=== PATIENT | male | born 1930 | race Caucasian/White ===

== ENCOUNTER 2017-12-28 08:06 | Emergency (ER) | payer MEDICARE, BC ==
--- NOTE | 2017-12-28 08:20 | EDM.PDOC ---
ED HPI GENERAL MEDICAL PROBLEM - General Chief Complaint: Lower Extremity Injury/Pain Stated Complaint: fall, right hip pain Time Seen by Provider: 12/28/17 08:15 Source of Information: Reports: Patient, EMS, Snf Records, Old Records ([facility] EMR. No paper hospital chart available.). Denies: EMS Notes Reviewed (Report not available at time of dictation) History Limitations: Reports: Altered Mental Status - History of Present Illness INITIAL COMMENTS - FREE TEXT/NARRATIVE: The patient was brought to the emergency room via private automobile by paramedics with IV placed in route. 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 Note the patient was found at about 07: 30 a.m. this morning lying on his back by his bed with unwitnessed apparent fall. No known history of significant head injury, loss of consciousness, neck/ back pain, etc. Initially the patient complained of some nonspecific left hip pain, however they nurse noted possible discomfort in the right hip and possible mild rotation. Only limited history obtained from the skilled nursing staff by the emergency room nurse prior to transfer and during subsequent telephone consultation. The patient denies any chest pain/pressure, heart flutter, dizziness, orthostasis, orthopnea, diaphoresis, paresthesias, recent decreased exercise tolerance, or any other anginal-type symptoms. No recent history of abdominal pain, heartburn, nausea, diarrhea, melena, gross hematochezia, or any food intolerance, including fatty foods, etc.. The patient also denies any recent fever, cough, wheezing, dyspnea, etc.. No history of recent headaches, visual changes, diplopia, change in mental status, or other change in neurological status. The patient denies any pain or discomfort at this time. Onset: Unknown/Unsure Onset Date: 12/28/17 Duration: Resolved Prior to Arrival Location: Reports: Upper Extremity, Right, Lower Extremity, Left. Denies: Head , Face, Neck, Chest, Abdomen, Back, Pelvis, Upper Extremity, Left, Lower Extremity, Right, Generalized, Radiates to Quality: Reports: Same as Previous Episode Improves with: Reports: None Worsens with: Reports: None Context: Reports: Other (As above) Associated Symptoms: Reports: Confusion (Stable by history), Weakness (Stable generalized). Denies: Chest Pain, Cough, Diaphoresis, Fever/Chills, Headaches, Malaise, Nausea/Vomiting, Seizure, Shortness of Breath Treatments [employer]: Reports: IV/IO - Related Data Allergies Allergy/AdvReac Type Severity Reaction Status Date / Time No Known Allergies Allergy Verified 12/28/17 08:30 Home Meds: Home Meds Acetaminophen 650 mg PO Q8H PRN 08/05/16 [History] Acetaminophen [Tylenol Arthritis] 650 mg PO TID 08/05/16 [History] Memantine [Namenda] 10 mg PO 08,20 08/05/16 [History] OLANZapine [ZyPREXA] 10 mg PO BEDTIME 08/05/16 [History] Sertraline HCl 50 mg PO DAILY 08/05/16 [History] Donepezil HCl [Aricept] 10 mg PO BEDTIME 08/06/16 [History] diphenhydrAMINE HCl/Zinc Acet [Anti-Itch 1%-0.1% Cream] 1 dose TOP Q12H PRN [History] Alum Hydrox/Mag Hydrox/Simeth [Mag-Al Plus] 30 ml PO Q12H PRN 12/28/17 [History] Aspirin [Halfprin] 81 mg PO DAILY@1400 12/28/17 [History] Bisacodyl [Dulcolax] 5 mg PO Q12H PRN 12/28/17 [History] Sibley Tar [Pedro-Gel Tar] 1 applic TOP WEEKLY 12/28/17 [History] Past Medical History HEENT History: Reports: Other (See Below) Other HEENT History: Dry eye syndrome Gastrointestinal History: Reports: Chronic Constipation, GERD Genitourinary History: Reports: Chronic Renal Insuffiency, Urinary Incontinence Musculoskeletal History: Reports: Arthritis, Back Pain, Chronic, Neck Pain, Chronic, Osteoarthritis Neurological History: Reports: Alzheimers Disease, Other (See Below) Other Neuro History: History of hydrocephalus Psychiatric History: Reports: Aggressive/Hostile Behaviors, Alzheimers Disease , Anxiety, Dementia, Depression, Psychosis Dermatologic History: Reports: Seborrheic Dermatitis, Other (See Below) Other Dermatologic History: Scalp seborrheaic dermatitis, additional seborrheic keratosis - Past Surgical History HEENT Surgical History: Reports: Oral Surgery, Other (See Below) Other HEENT Surgeries/Procedures: Multiple teeth extractions including total upper dentures Social & Family History - Family History Family Medical History: Unobtainable - Tobacco Use Smoking Status *Q: Current Status Unknown - Living Situation & Occupation Living situation: Reports: , Extended Care Facility ([facility]) Review of Systems - Review of Systems Review Of Systems: ROS reveals no pertinent complaints other than HPI. ED EXAM, GENERAL - Physical Exam Exam: See Below Exam Limited By: No Limitations General Appearance: Alert, WD/WN, No Apparent Distress Eye Exam: Bilateral Eye: Normal Fundi, Normal Inspection (No nystagmus, moderate bilateral miosis), PERRL Ears: Normal External Exam, Normal Canal, Hearing Grossly Normal, Normal TMs Nose: Normal Inspection, Normal Mucosa, No Blood Throat/Mouth: Normal Lips, Normal Gums, Normal Oropharynx, Normal Voice, No Airway Compromise. No: Normal Teeth (Complete upper dentures. Multiple missing teeth lowers with multiple caries with no evidence of drainage, abscess, etc.), Dysphagia, Perioral Cyanosis Head: Atraumatic, Normocephalic. No: Facial Swelling, Facial Tenderness, Sinus Tenderness Neck: Other (0.5 cm area of seborrheic keratosis over the right anterior lateral neck region the patient has been picking with some mild localized bleeding but no evidence of infection or malignancy). No: Supple, Non-Tender, Full Range of Motion, Lymphadenopathy (L), Lymphadenopathy (R), Thyromegaly Respiratory/Chest: No Respiratory Distress, Lungs Clear, Normal Breath Sounds, No Accessory Muscle Use, Chest Non-Tender. No: Pleural Rub, Retractions Cardiovascular: Normal Peripheral Pulses, Regular Rate, Rhythm, No Gallop, No JVD, No Murmur, No Rub. No: No Edema (Dependent edema as below), Gallop/S3, Gallop/S4, Friction Rub Peripheral Pulses: 2+: Radial (L), Radial (R), Dorsalis Pedis (L), Dorsalis Pedis (R) GI/Abdominal: Normal Bowel Sounds, Soft, Non-Tender, No Organomegaly, No Distention, No Abnormal Bruit, No Mass, Pelvis Stable. No: Guarding (Male) Exam: Deferred Rectal (Males) Exam: Deferred Back Exam: Normal Inspection, Full Range of Motion. No: CVA Tenderness (L), CVA Tenderness (R), Muscle Spasm Extremities: Normal Range of Motion, Non-Tender, Pedal Edema (Trace bilateral pedal/pretibial edema. Moderate osteophytic changes. No palpation pain over the hips bilaterally with no significant rotation and adequate range of motion without discomfort). No: Demetris's Sign Neurological: Alert, CN II-XII Intact, Normal Reflexes (Negative Babinski's), No Motor/Sensory Deficits, Confused (Stable moderate organic brain syndrome by history) Psychiatric: Normal Affect, Normal Mood Skin Exam: Wound/Incision (As above). No: Diaphoretic, Ecchymosis, Pallor, Petechiae Lymphatic: No Adenopathy Course - Vital Signs Last Recorded V/S: Last Vital Signs Temp 36.6 C 12/28/17 08:15 Pulse 65 12/28/17 09:44 Resp 16 12/28/17 09:44 BP 171/80 H 12/28/17 09:44 Pulse Ox 92 L 12/28/17 09:44 Vital Signs - 24 hr 12/28/17 12/28/17 12/28/17 08:15 08:30 09:44 Temperature [ 36.6 C Temporal] Pulse, 65 67 65 Peripheral [ Left Pulse Oximetry] Respiratory 16 16 16 Rate Blood Pressure 179/73 H 178/83 H 171/80 H [Left Upper Arm ] O2 Sat by Pulse 93 L 93 L 92 L Oximetry - Orders/Labs/Meds Orders: Active Orders 24 hr Category Date Time Status Hip Min 2V or 3V w Pelvis Rt [CR] Stat Exams 12/28/17 08:21 Taken Labs: None Meds: None - Radiology Interpretation Free Text/Narrative:: X-rays of the right hip, 2 views, including additional one view of the pelvis shows no evidence of fracture, dislocation, etc. Moderate osteoarthritic changes noted Departure - Departure Time of Disposition: 10:00 Disposition: DC/Tfer to SNF 03 Condition: Good Clinical Impression: Organic brain syndrome, Mixed anxiety depressive disorder, Seborrheic keratosis , Elevated blood pressure reading Contusion Qualifiers: Encounter type: initial encounter Contusion area: lower leg Laterality: right Qualified Code(s): S80.11XA - Contusion of right lower leg, initial encounter Osteoarthritis Qualifiers: Osteoarthritis location: multiple joints Osteoarthritis type: primary Qualified Code(s): M15.0 - Primary generalized (osteo)arthritis Constipation Qualifiers: Constipation type: chronic idiopathic constipation Qualified Code(s): K59.04 - Chronic idiopathic constipation - Discharge Information Instructions: Contusion, [id number] Referrals: Sheets-Blanca Turner MD [Primary Care Provider] - Forms: ED Department Discharge Additional Instructions: 1. Follow up with your regular provider in 10-14 days as needed, if symptoms persist. 2. BenGay or equivalent, heating pad, and/or ice packs as directed. 3. Continue strict fall precautions. Notify regular provider, if recurrent falls becomes an issue. 4. Discuss with the patient's and/or regular provider possible referral to a dentist secondary to his significant caries 5. Continue to observe blood pressures closely with blood pressure and pulse evaluations on an every shift basis 24 hours. Notify regular provider if blood pressures remain elevated. He may take his morning medications. - Problem List & Annotations (1) Contusion SNOMED Code(s): 656844616 Code(s): T14.8XXA - OTHER INJURY OF UNSPECIFIED BODY REGION, INITIAL ENCOUNTER Status: Acute Priority: High Current Visit: Yes Onset Date: ~ 12/28/17 Annotation/Comment:: Probable minor fall while getting out of bed earlier this morning as above. A trauma code was immediately considered in this patient secondary to the mechanism of injury, however based on the clinical presentation of the patient, previous history, etc. this provider did not feel that a trauma code would affect the patient's level of care and was not warranted. No pain at this time with no evidence of significant injury. Probable mild left hip contusion with questionable right hip rotation history as above. Symptomatic relief as per discharge instructions. Continue strict fall precautions. Patient requires assist 2 and is not normally very ambulatory , including no current walker use, etc. Qualifiers: Encounter type: initial encounter Contusion area: lower leg Laterality: right Qualified Code(s): S80.11XA - Contusion of right lower leg, initial encounter (2) Elevated blood pressure reading SNOMED Code(s): 57964401 Code(s): R03.0 - ELEVATED BLOOD-PRESSURE READING, W/O DIAGNOSIS OF HTN Status: Acute Priority: High Current Visit: Yes Onset Date: 12/28/17 Annotation/Comment:: Nursing staff to continue to observe this closely as per discharge instructions. No previous history of hypertension or current medical therapy for this disorder. No change in his neurological status. (3) Osteoarthritis SNOMED Code(s): 265214232 Code(s): M19.90 - UNSPECIFIED OSTEOARTHRITIS, UNSPECIFIED SITE Status: Chronic Priority: Medium Current Visit: Yes Annotation/Comment:: Otherwise stable by history Qualifiers: Osteoarthritis location: multiple joints Osteoarthritis type: primary Qualified Code(s): M15.0 - Primary generalized (osteo)arthritis (4) Organic brain syndrome SNOMED Code(s): 316441431 Code(s): F09 - UNSP MENTAL DISORDER DUE TO KNOWN PHYSIOLOGICAL CONDITION Status: Chronic Priority: Medium Current Visit: Yes Annotation/Comment:: Stable by history (5) Mixed anxiety depressive disorder SNOMED Code(s): 499602531 Code(s): F41.8 - OTHER SPECIFIED ANXIETY DISORDERS Status: Chronic Priority: Medium Current Visit: Yes Annotation/Comment:: Stable by history. Note history of psychosis. Patient has not yet taken his morning medications (6) Constipation SNOMED Code(s): 57131639 Code(s): K59.00 - CONSTIPATION, UNSPECIFIED Status: Chronic Priority: Medium Current Visit: Yes Annotation/Comment:: Stable by history Qualifiers: Constipation type: chronic idiopathic constipation Qualified Code(s): K59.04 - Chronic idiopathic constipation (7) Seborrheic keratosis SNOMED Code(s): 831092753 Code(s): L82.1 - OTHER SEBORRHEIC KERATOSIS Status: Chronic Priority: Medium Current Visit: Yes Annotation/Comment:: Mild left neck irritation as above. Additional history of scalp dermatitis. Observe for now - Problem List Review Problem List Initiated/Reviewed/Updated: Yes - My Orders Last 24 Hours: My Active Orders 12/28/17 08:21 Hip Min 2V or 3V w Pelvis Rt [CR] Stat - Assessment/Plan Last 24 Hours: My Active Orders 12/28/17 08:21 Hip Min 2V or 3V w Pelvis Rt [CR] Stat Assessment:: As above Plan: As above. Extensive precautions were given to the patient, who is in agreement with the treatment plan. See Patient Instructions for further treatment and plan.
[2017-12-28 09:44] VITALS: BP 171/80
== END 2017-12-28 10:00 ==
LOC: LL.ED 08:06
DX: S80.11XA Contusion of right lower leg, initial encounter (principal); F09 Unspecified mental disorder due to known physiological condition; F41.8 Other specified anxiety disorders; L82.1 Other seborrheic keratosis; R03.0 Elevated blood-pressure reading, without diagnosis of hypertension; M15.0 Primary generalized (osteo)arthritis; K59.04 Chronic idiopathic constipation; N18.9 Chronic kidney disease, unspecified; Z79.82 Long term (current) use of aspirin; Z79.899 Other long term (current) drug therapy; W19.XXXA Unspecified fall, initial encounter
CPT/HCPCS: 99285